=== PATIENT | female | born 1960 | race Caucasian/White ===

== ENCOUNTER → 2018-08-30 | Outpatient (CLI) | payer BC ==
--- NOTE | 2018-08-31 09:12 | PCVCIMAG ---
APPROVED REPORT Study performed: 08/30/2018 14:59:33 Exam: Stress Echocardiogram Indication: Syncope, fam hx cad, tobacco use, hlp Patient Location: Echo lab Stress Nurse: Eva Curiel RN Status: routine Ht: 5 ft 4 in HR: 73 bpm BP: 132/80 mmHg Rhythm: NSR Procedure The patient underwent an Exercise Stress Test using the Reese Protocol. Blood pressure, heart rate, and EKG were monitored. An Echocardiogram was performed by corrosion technician in four stages in quad fashion. At peak stress, four selected images were obtained and placed side by side with resting images for comparison. Stress Test Details Stress Test: Exercise stress testing was performed using a Reese protocol. HR Resting HR: 73 bpmMax Heart Rate (APMHR): 161 bpm Max HR Achieved: 162 bpmTarget HR (85% APMHR): 136 bpm % of APMHR: 100 Recovery HR: 90 bpm HR response to stress: Normal HR response to stress BP Resting BP: 132/80 mmHg Max BP: 162/78 mmHg Recovery BP: 138/72 mmHg BP response to stress: Normal blood pressure response to stress. ECG Resting ECG: Sinus Rhythm Stress ECG: Sinus Rhythm ST Change: Normal Arrhythmia: rare isolated PVC Recovery ECG: Sinus Rhythm Recovery ST Change: Normal Recovery Arrhythmia: None Clinical Reason for Termination: Maximal effort Stress Symptoms: Dyspnea, knee pain Exercise duration: 9 min 54 sec Highest Stage Achieved: Stage 4: 4.2 mph at 16% grade. Exercise capacity: 13 METs Overall Exercise Capacity for Age: Normal Scale: Active Angina Score: None Pre-Stress Echo The resting Echocardiogram showed normal left ventricular contractility with an estimated Ejection Fraction of about >55%. Normal wall motion in all segments on baseline images. Post-Stress Echo The stress Echocardiogram showed normal left ventricular contractility with an estimated Ejection Fraction of about 65%. Normal augmentation of wall motion in all segments on post stress images. Clinical No clinical or ECG evidence for ischemia. Conclusion Clinical Response: Non-ischemic Exercise Capacity: Average Stress ECG Response: Non-ischemic Stress Echo Images: Non-ischemic The left ventricle is normal in size and wall thickness in both the rest and stress images. Other Information Study Quality: Adequate <Conclusion> The left ventricle is normal in size and wall thickness in both the rest and stress images.
== END | disposition home or self-care (01) ==
LOC: PCVCIMAG 14:45
PROVIDERS: ATTEND Internal Medicine Cardiovascular Disease
DX: I65.23 Occlusion and stenosis of bilateral carotid arteries (principal); R55 Syncope and collapse; E78.5 Hyperlipidemia, unspecified; F17.200 Nicotine dependence, unspecified, uncomplicated; R09.89 Other specified symptoms and signs involving the circulatory and respiratory systems; Z82.49 Family history of ischemic heart disease and other diseases of the circulatory system; Z87.898 Personal history of other specified conditions
CPT/HCPCS: 93325; 93351; 93880